=== PATIENT | male | born 2000 | race Caucasian/White ===

== ENCOUNTER → 2024-01-30 | Outpatient (CLI) | payer OTHER ==
[~2024-01-30] MED LIST: ISOVUE-300 61% 100ML VIAL As Ordered ONE; LIDOCAINE 1% MDV 20ML VIAL As Ordered ONE; PROHANCE 279.3MG/ML 5ML VIAL As Ordered ONE
== END ==
LOC: M RAD 06:36
PROVIDERS: ATTEND Physician Assistant
DX: M25.511 Pain in right shoulder (principal)
CPT/HCPCS: 23350; 73223; 77002; A9576; Q9967

== ENCOUNTER → 2024-09-07 | Outpatient (CLI) | payer OTHER | LOC: M RAD 12:47 | PROVIDERS: ATTEND Physician Assistant | DX: M25.511 Pain in right shoulder (principal) | CPT/HCPCS: 23350; 73223; 77002; A9576; Q9967 ==

== ENCOUNTER 2025-05-13 11:50 | Emergency (ER) | payer OTHER ==
[~2025-05-13] VITALS: Ht 190.5 cm; Wt 101.9 kg
[2025-05-13 13:32] LABS: KETONE, URINE AUTO RFX NEGATIVE (NEGATIVE); LEUKOCYTE ESTERASE UR AUTO RFX NEGATIVE (NEGATIVE); MUCUS, URINE RFX SMALL (NEGATIVE); NITRITE, URINE AUTO RFX NEGATIVE (NEGATIVE); RBC, URINE AUTO RFX 2 /HPF (0-3); SQUAM EPITHELIAL CELL UR AURFX 0 /HPF (0-6); WBC, URINE AUTO RFX 1 /HPF (0-3)
[2025-05-13 14:46] LABS: Trichomonas vaginalis (AMP) NOT DETECTED (NEGATIVE)
[2025-05-13 15:09] LABS: GC DNA AMPLIFICATION NEGATIVE (NEGATIVE)
[2025-05-13 17:45] VITALS: BP 137/70; TEMP 97.8; O2SAT 99
[2025-05-13] MEDS ORDERED: COLA100C5 PO (17:53)
[2025-05-13] MEDS: MAGNESIUM CITRATE 300 ML BTL PO ONE (17:58)
== END 2025-05-13 18:12 | disposition home or self-care (01) ==
LOC: M ED 11:50
DX: N50.811 Right testicular pain (principal); N20.0 Calculus of kidney